=== PATIENT | male | born 1970 | race Caucasian/White ===

== ENCOUNTER 2022-06-15 10:23 | Outpatient (CLI) | payer OTHER, SELFPAY ==
[2022-06-15 13:45] LABS: Chloride* 100 mmol/L (96-114); Potassium* 3.7 mmol/L (3.6-5.1); Sodium* 138 mmol/L (135-149)
[2022-06-15 13:47] LABS: Cholesterol* 182 mg/dL (90-199); Creatinine* 0.7 mg/dL (0.5-1.5); Estimated Glomerular Filt Rate 110 ml/min
[2022-06-15 13:48] LABS: Blood Urea Nitrogen* 21 mg/dL (7-30); Calcium* 9.9 mg/dL (8.4-10.6); Carbon Dioxide* 30 mmol/L (20-32); Glucose* 255 mg/dL (60-115); HDL Cholesterol* 36 mg/dL (>=40); LDL Cholesterol Calculated 119 mg/dL (<100); Triglycerides* 134 mg/dL (40-149)
[2022-06-15 14:19] LABS: PSA Screen* 0.13 ng/mL (0.10-4.00)
== END 2022-06-15 10:24 | disposition home or self-care (01) ==
LOC: NFLDREF 10:24
PROVIDERS: PCP Family Medicine; Visit Provider Family Medicine
DX: Z00.00 Encounter for general adult medical examination without abnormal findings (principal); E11.9 Type 2 diabetes mellitus without complications; I10 Essential (primary) hypertension; Z12.5 Encounter for screening for malignant neoplasm of prostate
CPT/HCPCS: 80048; 80061; 84153

== ENCOUNTER 2023-09-25 11:09 | Outpatient (CLI) | payer BC, SELFPAY ==
--- OUTSIDE RECORDS SUMMARY | 2023-10-15 10:01 | XMS_ITS | Clinical Summary ---
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 [place] and strips for paola meter E11.9 NIDDM [...] - 199 mg/dL 10/15/2018 8:31 PM CDT [facility] TRIGLYCERIDES 220(H) <150 mg/dL 10/15/2018 8:31 PM CDT [facility] HDL CHOLESTEROL 33(L) >40 mg/dL 9 8:31 PM CDT [facility] NON-HDL CHOLESTEROL 135 <145 mg/dl 10/15/2018 8:31 PM CDT [facility] CHOL/HDL RATIO 5.09(H) <4.50 10/15/2018 8:31 PM CDT [facility] LDL CHOLESTEROL 91 <=130 mg/dL 10/15/2018 8:31 PM CDT [facility] PROVIDER ORDERED STATUS RANDOM 10/15/2018 8:31 PM CDT [facility] Blood BLOOD SPECIMEN / Unknown Venipuncture / Unknown 10/15/2018 4:34 PM CDT 10/15/2018 4:36 PM CDT Wellington Benito MD CHEMISTRY [facility] [address] [place] [address], [place] * ANTI HIV 1/2 (12/18/2013 2:06 PM CDT) HIV-1/HIV-2 ANTIBODY Non-Reacti ve Non-Reacti ve 12/19/2013 10:13 AM CDT [facility] Blood specimen (specimen) BLOOD SPECIMEN / Unknown Venipuncture / Unknown 12/18/2013 2:06 PM CDT 12/18/2013 2:06 PM CDT Narrative [facility] - 12/19/2013 10:13 AM CDT HIV-1 p24 and HIV-1/HIV-2 Ab not detected Wellington Benito MD [facility] [address] [place] [address], [place] from Last 3 Months or Most Recently Relevant to Health Maintenance
== END 2023-09-25 11:10 | disposition home or self-care (01) ==
LOC: NFLDREF 10-15 09:58
PROVIDERS: PCP Family Medicine; Referring Provider Family Medicine; Visit Provider Family Medicine
DX: Z00.00 Encounter for general adult medical examination without abnormal findings (principal); E11.9 Type 2 diabetes mellitus without complications; I10 Essential (primary) hypertension; R80.9 Proteinuria, unspecified; N52.9 Male erectile dysfunction, unspecified; Z11.59 Encounter for screening for other viral diseases; Z13.6 Encounter for screening for cardiovascular disorders; Z11.3 Encounter for screening for infections with a predominantly sexual mode of transmission
CPT/HCPCS: 80048; 80061; 84460; 86703; 86803; 87340; G0103

== ENCOUNTER 2023-09-27 14:09 | Outpatient (CLI) | payer BC, SELFPAY ==
--- OUTSIDE RECORDS SUMMARY | 2023-09-27 14:11 | XMS_ITS | Clinical Summary ---
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 [place] and strips for paola meter E11.9 NIDDM type II - Test 3 times/day, Reason: High A1C . 100 Each 08/01/2017 Active losartan-hydrochlorot hiazide (HYZAAR) 100-25 mg tabletIndications:Ess ential hypertension Take 1 tablet by mouth once daily. 90 tablet 3 10/15/2018 Active glimepiride (AMARYL) 2 mg tabletIndications:Typ e 2 diabetes mellitus without complication, without long-term current use of insulin (HC) Take 1 tablet by mouth once daily with a meal. 90 tablet 3 10/15/2018 Active blood sugar diagnostic (BLOOD GLUCOSE TEST) stripIndications:Type 2 diabetes mellitus without complication, without long-term current use of insulin (HC) Dispense items covered by pt ins. Diabetic supplies. [place] test strips and needles for paola contour VORB Dr. Benito. Maggie Quevedo, RN 3 box 10/15/2018 Active albuterol HFA (PROAIR HFA) 90 mcg/actuation inhalerIndications:Mi ld intermittent asthma without complication Inhale 2 Puffs by mouth every 6 hours if needed. 1 Inhaler 1 07/31/2019 Active metFORMIN (GLUCOPHAGE XR) 500 mg Extended-Release tabletIndications:Typ e 2 diabetes mellitus without complication, without long-term current use of insulin (HC) TAKE 2 TABLETS BY MOUTH TWICE DAILY WITH MEALS 120 tablet 10/14/2019 Active Active Problems Problem Noted Date Diagnosed Date Umbilical hernia 05/28/2013 Erectile dysfunction 05/28/2013 Essential hypertension 03/02/2010 Type 2 diabetes mellitus wit hout complication, without long-term current use of insulin 06/09/2009 Overview: 102 on 06/02/09 Mild intermittent asthma 11/18/2008 Overview: Usually in December MDI used only 2-3 times per year Obesity, unspecified 11/18/2008 Shingles Resolved Problems Problem Noted Date Diagnosed Date Resolved Date Elevated blood pressure read ing without diagnosis of hypertension 11/18/2008 03/02/2010 Immunizations Name Administration Dates Next Due Tdap 11/18/2008 Family History Medical History Relation Name Comments Diabetes Father DM b 1945 Heart Disease Father CABG at 64 yo Other Father PADz Ulcers Father causing anemia Cancer Maternal Grandmother lung Other Maternal Grandmother AAA Arthritis Mother b 1945 - 2 TKA' s Cancer-breast Paternal Aunt Good Health Sister 1 Good Health Sister 2 Relation Name Status Comments Father Maternal Grandmother Mother Paternal Aunt Sister 1 Sister 2 Social History Tobacco Use Types Packs/Day Years Used Date Smoking Tobacco: Never Smokeless Tobacco: Never Tobacco Cessation:Counseling Given: Yes Alcohol Use Standard Drinks/Week Comments Yes 0 (1 standard drink = 0.6 oz pur e alcohol) 1 glass of wine per month PHQ-2 Answer Date Recorded PHQ-2 Score 0 07/07/2018 Sex and Gender Information Value Date Recorded Sex Assigned at Not on file Gender Identity Not on file Sexual Orientation Not on file Obstetrics History Last Filed Vital Signs Vital Sign Reading Time Taken Comments Blood Pressure 128/88 10/15/2018 5:12 PM CDT Pulse 84 10/15/2018 4:42 PM CDT Temperature 36.9 ??C (98.4 ??F) 12/08/2015 1:57 PM CD T Respiratory Rate - - Oxygen Saturation 98% 10/15/2018 4:42 PM CDT Inhaled Oxygen Concentration - - Weight 134.2 kg (295 lb 12.8 oz) 10/15/2018 4:42 PM CDT Height 188 cm (6' 2) 10/15/2018 5:05 PM CDT Body Mass Index 37.98 10/15/2018 4:42 PM CDT Plan of Treatment Health Maintenance Due Date Last Done Comments Hepatitis C screening for age 18-79 1987 Colonoscopy through age 75 2014 Tetanus booster 11/18/2018 11/18/2008 Zoster (shingles) series for age 50+ (1 of 2) 2019 BMI (ht and wt on same day) for age 18+ 01/23/2019 01/23/2018, 08/01/2017, 01/02/2017, Additional history exists Depression screening for age 12+ 10/16/2019 10/15/2018, 01/23/2018, 01/02/2017, Additional history exists COVID-19 vaccine series (2022-24 season) 2023 Lipids for age 45-75 10/16/2023 10/15/2018, 01/23/2018, 08/01/2017, Additional history exists Influenza for age 50-64 01/05/2024 Tdap Completed 11/18/2008 HIV for age 15-65 Completed 12/18/2013 Pneumococcal series for age 6-64 Aged Out No longer eligible based on patient's age to complete this topic Goals Goal Patient Goal Type Associated Problems Recent Progress Patient-Stated? Author BLOOD PRESSURE - MAINTAINS BP less than 140/90 Blood Pressure Wellington Camilo MD Procedures Procedure Name Priority Date/Time Associated Diagnosis Comments LIPID PANEL W REFLEX MEASURED LDL Routine 10/15/2018 4:34 PM CDT Type 2 diabetes mellitus without complication, without long-term current use of insulin (HC) ANTI HIV 1/2 Routine 12/18/2013 2:06 PM CDT Screen for STD (sexually transmitted disease) from Last 3 Months or Most Recently Relevant to Health Maintenance Results * (ABNORMAL) LIPID PANEL W REFLEX MEASURED LDL (10/15/2018 4:34 PM CDT) CHOLESTEROL,TOTAL 168 100 - 199 mg/dL 10/15/2018 8:31 PM CDT [facility] TRIGLYCERIDES 220(H) <150 mg/dL 10/15/2018 8:31 PM CDT [facility] HDL CHOLESTEROL 33(L) >40 mg/dL 9 8:31 PM CDT [facility] NON-HDL CHOLESTEROL 135 <145 mg/dl 10/15/2018 8:31 PM CDT [facility] CHOL/HDL RATIO 5.09(H) <4.50 10/15/2018 8:31 PM CDT [facility] LDL CHOLESTEROL 91 <=130 mg/dL 10/15/2018 8:31 PM CDT [facility] PROVIDER ORDERED STATUS RANDOM 10/15/2018 8:31 PM CDT [facility] Blood BLOOD SPECIMEN / Unknown Venipuncture / Unknown 10/15/2018 4:34 PM CDT 10/15/2018 4:36 PM CDT Wellington Benito MD CHEMISTRY [facility] [address] [place] [address], [place] * ANTI HIV 1/2 (12/18/2013 2:06 PM CDT) HIV-1/HIV-2 ANTIBODY Non-Reacti ve Non-Reacti ve 12/19/2013 10:13 AM CDT [facility] Blood specimen (specimen) BLOOD SPECIMEN / Unknown Venipuncture / Unknown 12/18/2013 2:06 PM CDT 12/18/2013 2:06 PM CDT Narrative [facility] - 12/19/2013 10:13 AM CDT HIV-1 p24 and HIV-1/HIV-2 Ab not detected Wellington Benito MD [facility] [address] [place] [address], [place] from Last 3 Months or Most Recently Relevant to Health Maintenance
[2023-09-27 17:48] LABS: Creatinine Urine 129.3 mg/dL
[2023-09-27 17:53] LABS: Microalbumin Creatinine Ratio 30 mg/g (0-30); Microalbumin Urine 5 mg/dL
== END 2023-09-27 14:10 | disposition home or self-care (01) ==
PROVIDERS: PCP Family Medicine; Visit Provider Family Medicine
DX: R80.9 Proteinuria, unspecified (principal)
CPT/HCPCS: 82043; 82570

== ENCOUNTER 2024-03-05 11:55 | Outpatient (CLI) | payer BC, SELFPAY ==
--- OUTSIDE RECORDS SUMMARY | 2024-03-05 11:59 | XMS_ITS | Clinical Summary ---
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 [place] and strips for paola meter E11.9 NIDDM [...] without long-term current use of insulin 06/09/2009 Overview (06/09/2009): 102 on 06/02/09 Mild intermittent asthma 11/18/2008 Overview (11/18/2008): Usually in December MDI used only 2-3 [...] 10/16/2019 10/15/2018, 01/23/2018, 01/02/2017, Additional history exists Lipids for age 45-75 10/16/2023 10/15/2018, 01/23/2018, 08/01/2017, Additional history exists COVID-19 vaccine series (2023- season) 2024 Influenza for age 50-64 01/05/2024 Tdap Completed 11/18/2008 HIV for age 15-65 Completed 12/18/2013 Pneumococcal series for age 6-64 Aged Out No longer eligible based on patient's age to complete this topic Goals Goal Patient Goal Type Associated Problems Recent Progress Patient-Stated? Author BLOOD PRESSURE - MAINTAINS BP less than 140/90 Blood Pressure No Wellington Benito MD Procedures Procedure Name Priority Date/Time Associated [...] REFLEX MEASURED LDL (10/15/2018 4:34 PM CDT) [facility] Signature CHOLESTEROL,TOTAL 168 100 - 199 mg/dL 10/15/2018 8:31 PM CDT [facility] TRIGLYCERIDES 220(H) <150 mg/dL 10/15/2018 8:31 PM CDT [facility] HDL CHOLESTEROL 33(L) >40 mg/dL 9 8:31 PM CDT [facility] NON-HDL CHOLESTEROL 135 <145 mg/dl 10/15/2018 8:31 PM CDT [facility] CHOL/HDL RATIO 5.09(H) <4.50 10/15/2018 8:31 PM CDT [facility] LDL CHOLESTEROL 91 <=130 mg/dL 10/15/2018 8:31 PM CDT [facility] PROVIDER ORDERED STATUS RANDOM 10/15/2018 8:31 PM CDT [facility] Blood BLOOD SPECIMEN / Unknown Venipuncture / Unknown 10/15/2018 4:34 PM CDT 10/15/2018 4:36 PM CDT Wellington Benito MD CHEMISTRY [facility] [address] [place] [address], * ANTI HIV 1/2 (12/18/2013 2:06 PM CDT) HIV-1/HIV-2 ANTIBODY Non-Reacti ve Non-Reacti ve 12/19/2013 10:13 AM CDT [facility] Blood specimen (specimen) BLOOD SPECIMEN / Unknown Venipuncture / Unknown 12/18/2013 2:06 PM CDT 12/18/2013 2:06 PM CDT Narrative [facility] - 12/19/2013 10:13 AM CDT HIV-1 p24 and HIV-1/HIV-2 Ab not detected Wellington Benito MD SEND OUTS [facility] [address] [place] [address], from Last 3 Months or Most Recently Relevant to Health Maintenance
== END 2024-03-05 11:56 | disposition home or self-care (01) ==
LOC: LAB 11:58
DX: Z00.00 Encounter for general adult medical examination without abnormal findings (principal)
CPT/HCPCS: 36415; 99001

== ENCOUNTER 2024-09-22 13:09 | Outpatient (CLI) | payer BC, SELFPAY | END 2024-09-22 13:10 | disposition home or self-care (01) | LOC: FBOREF 13:10 | PROVIDERS: PCP Family Medicine; Visit Provider Family Medicine | DX: E11.65 Type 2 diabetes mellitus with hyperglycemia (principal); I10 Essential (primary) hypertension; Z79.84 Long term (current) use of oral hypoglycemic drugs; Z79.85 Long-term (current) use of injectable non-insulin antidiabetic drugs | CPT/HCPCS: 80048; 80061 ==